=== PATIENT | male | born 1960 | race African-American/Black ===

== ENCOUNTER 2019-06-09 05:27 | Inpatient (IN) ==
[2019-06-09 06:16] LABS: RETIC% 6.83 % (0.8-2.1); RETIC-HE 27.2 PG (28.2-36.6)
[2019-06-09 06:17] LABS: HEMATOCRIT 23.8 % (42.0-52.0); HEMOGLOBIN 8.1 g/dL (14.0-18.0); MCH 23.6 PG (27-31); MCV 69.4 FL (81-99); PLT 209 X1000 (130-400); RBC 3.43 XMIL (4.7-6.1); RDW 23.6 % (11.5-14.5); WBC 25.01 X1000 (4.8-10.8)
[2019-06-09 06:26] LABS: AGAP 15; ALBUMIN 4.7 g/dL (3.5-5.0); ALKALINE PHOSPHATASE 183 U/L (32-122); BUN 16 mg/dL (8-22); CHLORIDE 99 mmol/L (98-107); COSMO 278; CREATININE 1.1 mg/dL (0.7-1.2); ESTIMATED GFR > 60; GLUCOSE 116 mg/dL (70-104); GOT 100 U/L (10-34); GPT 41 U/L (10-44); POTASSIUM 4.6 mmol/L (3.5-5.1); SODIUM 138 mmol/L (136-145); TCO2 24 mmol/L (25-35); TOTAL PROTEIN 8.4 g/dL (6.3-8.3)
[2019-06-09] MEDS ORDERED: DEMEROL IM ONE (06:50)
[2019-06-09] MEDS ORDERED: NS 1,000 ML IV ONE ×3 (06:51→10:38)
[2019-06-09] MEDS ORDERED: ZOFRAN IV ONE (06:51)
[2019-06-09 07:14] LABS: ANISOCYTOSIS 4+; LYMPHS 9 % (21-51); MICROCYTOSIS 4+; MONO 14 % (1-9); NRBC 29 % (0-0); SEGS 77 % (42-75)
[2019-06-09 07:15] LABS: BURR CELLS 2+; SICKLE CELLS 3+
[2019-06-09 09:27] LABS: URINE SOURCE CLEAN CATCH
[2019-06-09 09:31] LABS: BILIRUBIN URINE NEGATIVE (NEGATIVE); BLOOD URINE 1+ (NEGATIVE); CLARITY CLEAR (CLEAR); COLOR YELLOW; GLUCOSE URINE NEGATIVE (NEGATIVE); KETONE URINE NEGATIVE (NEGATIVE); LEUKOCYTES URINE NEGATIVE (NEGATIVE); NITRITE URINE NEGATIVE (NEGATIVE); PROTEIN URINE 1+(30 mg/dL) mg/dL (NEGATIVE); SP GRAVITY URINE 1.015; UROBILINOGEN URINE NORMAL
[2019-06-09] MEDS ORDERED: ZOFRAN IV PRN (10:38)
[2019-06-09] MEDS ORDERED: MORPHINE IV PRN (10:38)
[2019-06-09] MEDS: MORPHINE IV PRN ×3 (12:59→22:26)
[2019-06-09] MEDS: ZOFRAN IV PRN ×2 (12:59→16:46)
[2019-06-09] MEDS: NS 1,000 ML IV SCH ×2 (13:03→20:07)
[2019-06-09] MEDS: PERCOCET-5 PO PRN ×2 (14:18→18:54)
[2019-06-09] MEDS ORDERED: VANCOMYCIN IV PER PHARMACY MISC SCH (17:45)
[2019-06-09] MEDS ORDERED: LEVAQUIN 750 MG/D5W 750 MG/150 ML IVPB IV SCH (18:00)
[2019-06-09] MEDS: LEVAQUIN 750 MG/D5W 750 MG/150 ML IVPB IV SCH (18:08)
[2019-06-09] MEDS ORDERED: PHENERGAN IV PRN (18:22)
[2019-06-09] MEDS ORDERED: SODIUM CHLORIDE 0.9% INJ PRN (18:22)
[2019-06-09] MEDS: VANCOMYCIN 1 GM/NS 1 GM/250 ML IVPB IV SCH ×2 (20:18→22:25)
[2019-06-09] MEDS ORDERED: TYLENOL PO ONE (22:10)
[2019-06-10] MEDS: NS 1,000 ML IV SCH ×4 (01:42→22:05)
[2019-06-10] MEDS: PERCOCET-5 PO PRN ×3 (01:43→22:02)
[2019-06-10 06:30] LABS: BASO% 0.2 % (0.0-0.8); HEMATOCRIT 20.8 % (42.0-52.0); HEMOGLOBIN 6.8 g/dL (14.0-18.0); MCH 22.7 PG (27-31); MCHC 32.7 g/dL (33-37); MCV 69.6 FL (81-99); PLT 144 X1000 (130-400); RBC 2.99 XMIL (4.7-6.1); RDW 22.6 % (11.5-14.5); RETIC% 6.28 % (0.8-2.1); RETIC-HE 26.5 PG (28.2-36.6); WBC 24.55 X1000 (4.8-10.8)
[2019-06-10 06:39] LABS: AGAP 11; ALBUMIN 3.9 g/dL (3.5-5.0); ALKALINE PHOSPHATASE 190 U/L (32-122); BUN 17 mg/dL (8-22); CALCIUM 8.9 mg/dL (8.8-10.2); CHLORIDE 103 mmol/L (98-107); COSMO 278; CREATININE 0.9 mg/dL (0.7-1.2); ESTIMATED GFR > 60; GLUCOSE 120 mg/dL (70-104); GOT 88 U/L (10-34); GPT 43 U/L (10-44); POTASSIUM 4.3 mmol/L (3.5-5.1); SODIUM 138 mmol/L (136-145); TCO2 23 mmol/L (25-35); TOTAL PROTEIN 7.3 g/dL (6.3-8.3)
[2019-06-10 06:40] LABS: LYMPH% 37.4 % (20.5-51.1); MPV 9.2 FL (7.4-10.4); NEUT% 53.9 % (42.2-75.2)
[2019-06-10 06:41] LABS: IMM GRAN% 0.9 % (0.0-0.5); MONO% 7.6 % (1.7-9.3)
[2019-06-10 06:42] LABS: IMM GRAN# 0.23 X1000 (0.0-0.04); LYMPH# 9.74 X1000 (1.2-3.4); MONO# 1.98 X1000 (0.11-0.59); NEUT# 14.03 X1000 (1.4-6.5)
[2019-06-10] MEDS: MORPHINE IV PRN ×2 (10:04→16:59)
[2019-06-10] MEDS ORDERED: LACTULOSE PO ONE (14:00)
[2019-06-10] MEDS ORDERED: TYLENOL PO ONE (15:40)
[2019-06-10] MEDS ORDERED: BENADRYL PO ONE (15:40)
[2019-06-10] MEDS: LEVAQUIN 750 MG/D5W 750 MG/150 ML IVPB IV SCH (18:32)
[2019-06-10] MEDS ORDERED: VANCOMYCIN 1,750 MG in NS 250 ML IV SCH (20:00)
[2019-06-11] MEDS: NS 1,000 ML IV SCH (04:18)
[2019-06-11] MEDS: PERCOCET-5 PO PRN (05:52)
[2019-06-11 08:09] LABS: AGAP 11; ALBUMIN 3.5 g/dL (3.5-5.0); ALKALINE PHOSPHATASE 296 U/L (32-122); BUN 13 mg/dL (8-22); CALCIUM 8.8 mg/dL (8.8-10.2); CHLORIDE 106 mmol/L (98-107); COSMO 281; CREATININE 0.8 mg/dL (0.7-1.2); ESTIMATED GFR > 60; GLUCOSE 118 mg/dL (70-104); GOT 101 U/L (10-34); GPT 66 U/L (10-44); SODIUM 140 mmol/L (136-145); TCO2 23 mmol/L (25-35); TOTAL PROTEIN 7.2 g/dL (6.3-8.3)
[2019-06-11 08:21] LABS: BASO# 0.06 X1000 (0.0-0.2); BASO% 0.3 % (0.0-0.8); HEMATOCRIT 21.5 % (42.0-52.0); HEMOGLOBIN 7.3 g/dL (14.0-18.0); IMM GRAN# 0.23 X1000 (0.0-0.04); IMM GRAN% 1.1 % (0.0-0.5); LYMPH# 7.65 X1000 (1.2-3.4); LYMPH% 35.6 % (20.5-51.1); MCH 24.2 PG (27-31); MCV 71.2 FL (81-99); MONO# 1.55 X1000 (0.11-0.59); MONO% 7.2 % (1.7-9.3); MPV 9.5 FL (7.4-10.4); NEUT# 11.97 X1000 (1.4-6.5); NEUT% 55.8 % (42.2-75.2); PLT 111 X1000 (130-400); RBC 3.02 XMIL (4.7-6.1); RDW 22.4 % (11.5-14.5); WBC 21.46 X1000 (4.8-10.8)
[2019-06-11 08:50] LABS: BANDS 1 % (0-1); EOS 1 % (1-10); LYMPHS 17 % (21-51); MONO 2 % (1-9); NRBC 50 % (0-0); SEGS 77 % (42-75)
[2019-06-11 08:51] LABS: ANISOCYTOSIS 2+; MICROCYTOSIS 3+
[2019-06-11] MEDS ORDERED: FOLIC ACID PO SCH (09:00)
[2019-06-11 10:22] LABS: BE 2.5 mmoll (-3.0-3.0); BLOOD TYPE ARTERIAL; HCO3-(ACT) 26.8 mmoll (20.0-26.0); METHB 1.7 % (0.0-1.5); O2(CT) 10.9 mL/dL (15.0-23.0); O2HB 91.4 % (95.0-99.0); PCO2(98.6) 42 mmHg (35-45); PO2(98.6) 77 mmHg (60-100); SAMPLE BLOOD; SAO2 97.4 % (95.0-100.0); THB 8.4 g/dL (11.5-17.4); pH(98.6) 7.42 (7.35-7.45)
[2019-06-11 10:24] LABS: ALLEN TEST NO; MODALITY CANNULA
[2019-06-11 10:35] LABS: BILIRUBIN URINE NEGATIVE (NEGATIVE); BLOOD URINE 3+ (NEGATIVE); CLARITY CLEAR (CLEAR); COLOR YELLOW; GLUCOSE URINE NEGATIVE (NEGATIVE); KETONE URINE NEGATIVE (NEGATIVE); LEUKOCYTES URINE NEGATIVE (NEGATIVE); NITRITE URINE NEGATIVE (NEGATIVE); PROTEIN URINE 2+(100 mg/dL) mg/dL (NEGATIVE); SP GRAVITY URINE 1.015; UROBILINOGEN URINE 1 mg/dL
[2019-06-11 10:40] LABS: URINE RBC <10 /HPF (<10); URINE SOURCE CATH; URINE WBC <10 /HPF (<10)
[2019-06-11] MEDS ORDERED: NARCAN IV ONE (10:58)
[2019-06-11] MEDS ORDERED: TYLENOL PO PRN (11:04)
[2019-06-11] MEDS ORDERED: MOTRIN PO PRN ×4 (11:06→18:06)
[2019-06-11] MEDS ORDERED: ZOSYN 4.5 GM in NS 100 ML IV SCH (12:00)
[2019-06-11] MEDS ORDERED: XOPENEX NEB INH SCH ×2 (15:30→19:30)
[2019-06-11] MEDS ORDERED: ATROVENT NEB INH SCH ×2 (15:30→19:30)
[2019-06-11 17:19] LABS: ALLEN TEST NO; BE 2.9 mmoll (-3.0-3.0); BLOOD TYPE ARTERIAL; HCO3-(ACT) 27.1 mmoll (20.0-26.0); METHB 1.9 % (0.0-1.5); O2(CT) 10.7 mL/dL (15.0-23.0); O2HB 92.4 % (95.0-99.0); PCO2(98.6) 44 mmHg (35-45); PO2(98.6) 91 mmHg (60-100); SAMPLE BLOOD; SAO2 97.9 % (95.0-100.0); THB 8.1 g/dL (11.5-17.4); pH(98.6) 7.41 (7.35-7.45)
[2019-06-11 17:21] LABS: MODALITY VENTIMASK
[2019-06-11] MEDS ORDERED: PHENERGAN IV PRN (18:06)
[2019-06-11] MEDS ORDERED: SODIUM CHLORIDE 0.9% INJ PRN (18:07)
[2019-06-11] MEDS: ZOSYN 4.5 GM in NS 100 ML IV SCH (18:15)
[2019-06-11] MEDS ORDERED: VANCOMYCIN IV PER PHARMACY MISC SCH (18:15)
[2019-06-11] MEDS ORDERED: ZOFRAN IV PRN (18:54)
[2019-06-11] MEDS ORDERED: NS NEB INH SCH (19:30)
[2019-06-11] MEDS: VANCOMYCIN 1,750 MG in NS 250 ML IV SCH (19:42)
[2019-06-11] MEDS: XOPENEX NEB INH SCH ×2 (19:50→23:35)
[2019-06-11] MEDS: ATROVENT NEB INH SCH ×2 (19:50→23:35)
[2019-06-11] MEDS ORDERED: ZITHROMAX 500 MG/NS 500 MG/250 ML IVPB IV SCH (20:00)
[2019-06-11] MEDS: ZITHROMAX 500 MG/NS 500 MG/250 ML IVPB IV SCH (21:50)
[2019-06-12] MEDS: ZOSYN 4.5 GM in NS 100 ML IV SCH ×4 (01:02→19:45)
[2019-06-12] MEDS: XOPENEX NEB INH SCH ×6 (03:37→23:40)
[2019-06-12] MEDS: ATROVENT NEB INH SCH ×6 (03:37→23:40)
[2019-06-12 08:47] LABS: AGAP 10; BUN 15 mg/dL (8-22); CALCIUM 9.1 mg/dL (8.8-10.2); CHLORIDE 110 mmol/L (98-107); COSMO 294; CREATININE 0.9 mg/dL (0.7-1.2); ESTIMATED GFR > 60; GLUCOSE 119 mg/dL (70-104); POTASSIUM 3.7 mmol/L (3.5-5.1); SODIUM 147 mmol/L (136-145); TCO2 27 mmol/L (25-35)
[2019-06-12] MEDS: FOLIC ACID PO SCH (08:50)
[2019-06-12 09:01] LABS: BASO# 0.04 X1000 (0.0-0.2); BASO% 0.2 % (0.0-0.8); HEMOGLOBIN 6.9 g/dL (14.0-18.0); IMM GRAN% 0.9 % (0.0-0.5); LYMPH% 42.3 % (20.5-51.1); MCHC 32.9 g/dL (33-37); MCV 72.9 FL (81-99); MONO# 1.32 X1000 (0.11-0.59); MONO% 6.2 % (1.7-9.3); NEUT% 50.4 % (42.2-75.2); PLT 96 X1000 (130-400); RBC 2.88 XMIL (4.7-6.1); RDW 22.5 % (11.5-14.5); WBC 21.26 X1000 (4.8-10.8)
[2019-06-12 09:37] LABS: EOS 2 % (1-10); LYMPHS 8 % (21-51); MONO 2 % (1-9); NRBC 42 % (0-0); SEGS 86 % (42-75)
[2019-06-12 09:38] LABS: ANISOCYTOSIS 2+; POLYCHROM OCCASIONAL
[2019-06-12 09:39] LABS: HOWELL-JOLLY BODIES 1+; SICKLE CELLS 1+; TARGET CELLS 2+
[2019-06-12] MEDS ORDERED: XOPENEX NEB ONE (11:01)
[2019-06-12] MEDS ORDERED: ATROVENT NEB ONE (11:01)
[2019-06-12] MEDS ORDERED: NS 500 ML IV ONE ×2 (12:33→15:00)
[2019-06-12] MEDS ORDERED: BENADRYL IV ONE ×2 (12:33→14:45)
[2019-06-12 13:01] LABS: RETIC% 3.38 % (0.8-2.1); RETIC-HE 22.6 PG (28.2-36.6)
[2019-06-12 13:46] LABS: INR 1.21; PROTIME 15.5 Seconds (11.0-16.0)
[2019-06-12 13:47] LABS: PTT 32.1 Seconds (22.3-41.8)
[2019-06-12] MEDS: VANCOMYCIN 1,750 MG in NS 250 ML IV SCH (20:15)
[2019-06-12 20:20] LABS: ALLEN TEST YES; BE 6.1 mmoll (-3.0-3.0); BLOOD TYPE ARTERIAL; HCO3-(ACT) 29.6 mmoll (20.0-26.0); METHB 1.6 % (0.0-1.5); O2HB 93.6 % (95.0-99.0); PCO2(98.6) 47 mmHg (35-45); PO2(98.6) 87 mmHg (60-100); SAMPLE BLOOD; SAO2 98.4 % (95.0-100.0); THB 9.8 g/dL (11.5-17.4); pH(98.6) 7.43 (7.35-7.45)
[2019-06-12 20:21] LABS: MODALITY VENTIMASK
[2019-06-12] MEDS ORDERED: D5W 1,000 ML IV SCH (20:30)
[2019-06-12] MEDS: ZITHROMAX 500 MG/NS 500 MG/250 ML IVPB IV SCH (23:15)
[2019-06-12] MEDS: MORPHINE IV PRN (23:34)
[2019-06-13] MEDS: ZOSYN 4.5 GM in NS 100 ML IV SCH ×2 (01:45→06:20)
[2019-06-13] MEDS: ATROVENT NEB INH SCH ×6 (03:03→23:09)
[2019-06-13] MEDS: XOPENEX NEB INH SCH ×6 (03:04→23:09)
[2019-06-13 05:11] LABS: HEMATOCRIT 28.9 % (42.0-52.0); HEMOGLOBIN 9.4 g/dL (14.0-18.0); MCH 25.1 PG (27-31); MCHC 32.5 g/dL (33-37); MCV 77.1 FL (81-99); PLT 123 X1000 (130-400); RBC 3.75 XMIL (4.7-6.1); RDW 23.4 % (11.5-14.5); WBC 22.47 X1000 (4.8-10.8)
[2019-06-13 07:23] LABS: AGAP 12; ALB/GLOB RATIO 0.7; ALBUMIN 3.1 g/dL (3.5-5.0); ALKALINE PHOSPHATASE 285 U/L (32-122); BUN 11 mg/dL (8-22); CALCIUM 9.2 mg/dL (8.8-10.2); CHLORIDE 114 mmol/L (98-107); COSMO 304; ESTIMATED GFR > 60; GLUCOSE 121 mg/dL (70-104); GOT 86 U/L (10-34); GPT 68 U/L (10-44); POTASSIUM 3.7 mmol/L (3.5-5.1); SODIUM 153 mmol/L (136-145); TCO2 27 mmol/L (25-35); TOTAL BILIRUBIN 1.62 mg/dL (0.20-1.00); TOTAL PROTEIN 7.5 g/dL (6.3-8.3)
[2019-06-13] MEDS: FOLIC ACID PO SCH (09:55)
[2019-06-13] MEDS ORDERED: LASIX IV ONE ×2 (10:14→22:00)
[2019-06-13] MEDS: D5W 1,000 ML IV SCH (11:03)
[2019-06-13] MEDS: MAXIPIME 2 GM in NS 100 ML IV SCH ×2 (11:58→22:26)
[2019-06-13] MEDS ORDERED: LABETALOL IV PRN (12:36)
[2019-06-13] MEDS ORDERED: BLISTEX MEDICATED BERRY LIP BALM TOP PRN (13:49)
[2019-06-13] MEDS: PERCOCET-5 PO PRN (20:07)
[2019-06-13] MEDS ORDERED: VANCOMYCIN 2 GM in NS 500 ML IV ONE (21:00)
[2019-06-13] MEDS: ZITHROMAX 500 MG/NS 500 MG/250 ML IVPB IV SCH (22:26)
[2019-06-14] MEDS: D5W 1,000 ML IV SCH ×4 (01:43→14:21)
[2019-06-14] MEDS: ATROVENT NEB INH SCH ×6 (03:42→23:30)
[2019-06-14] MEDS: XOPENEX NEB INH SCH ×6 (03:42→23:30)
[2019-06-14] MEDS: PERCOCET-5 PO PRN ×3 (05:42→16:37)
[2019-06-14 06:04] LABS: HEMATOCRIT 29.6 % (42.0-52.0); HEMOGLOBIN 9.7 g/dL (14.0-18.0); MCH 25.4 PG (27-31); MCHC 32.8 g/dL (33-37); MCV 77.5 FL (81-99); PLT 129 X1000 (130-400); RBC 3.82 XMIL (4.7-6.1); RDW 24.6 % (11.5-14.5); WBC 29.99 X1000 (4.8-10.8)
[2019-06-14 06:24] LABS: AGAP 10; BUN 10 mg/dL (8-22); CALCIUM 8.8 mg/dL (8.8-10.2); CHLORIDE 103 mmol/L (98-107); COSMO 285; ESTIMATED GFR > 60; GLUCOSE 113 mg/dL (70-104); POTASSIUM 3.1 mmol/L (3.5-5.1); SODIUM 143 mmol/L (136-145); TCO2 30 mmol/L (25-35)
[2019-06-14] MEDS: VANCOMYCIN 1,200 MG in NS 250 ML IV SCH ×2 (08:52→21:28)
[2019-06-14] MEDS: FOLIC ACID PO SCH (08:52)
[2019-06-14] MEDS ORDERED: LASIX IV ONE (09:15)
[2019-06-14] MEDS: MAXIPIME 2 GM in NS 100 ML IV SCH ×2 (12:00→23:07)
[2019-06-14] MEDS: MORPHINE IV PRN (21:39)
[2019-06-14] MEDS: ZITHROMAX 500 MG/NS 500 MG/250 ML IVPB IV SCH (23:07)
[2019-06-15] MEDS: PERCOCET-5 PO PRN ×4 (00:25→22:18)
[2019-06-15] MEDS: XOPENEX NEB INH SCH ×6 (03:19→23:09)
[2019-06-15] MEDS: ATROVENT NEB INH SCH ×6 (03:19→23:09)
[2019-06-15] MEDS: D5W 1,000 ML IV SCH ×2 (03:26→11:30)
[2019-06-15 06:49] LABS: BASO# 0.06 X1000 (0.0-0.2); BASO% 0.2 % (0.0-0.8); HEMATOCRIT 29.8 % (42.0-52.0); HEMOGLOBIN 9.7 g/dL (14.0-18.0); MCH 25.3 PG (27-31); MCHC 32.6 g/dL (33-37); MCV 77.6 FL (81-99); PLT 177 X1000 (130-400); RBC 3.84 XMIL (4.7-6.1); RDW 25.2 % (11.5-14.5); WBC 31.44 X1000 (4.8-10.8)
[2019-06-15 07:15] LABS: AGAP 13; BUN 14 mg/dL (8-22); CALCIUM 8.9 mg/dL (8.8-10.2); CHLORIDE 100 mmol/L (98-107); COSMO 282; CREATININE 1.1 mg/dL (0.7-1.2); ESTIMATED GFR > 60; GLUCOSE 97 mg/dL (70-104); POTASSIUM 3.1 mmol/L (3.5-5.1); SODIUM 141 mmol/L (136-145); TCO2 28 mmol/L (25-35)
[2019-06-15] MEDS ORDERED: KLOR-CON PO ONE (08:32)
[2019-06-15 10:14] LABS: ANISOCYTOSIS 2+; BANDS 2 % (0-1); BASO 1 % (0-1); LYMPHS 14 % (21-51); MONO 6 % (1-9); NRBC 146 % (0-0); POLYCHROM 1+; SEGS 76 % (42-75)
[2019-06-15 10:15] LABS: HYPOCHROM 1+; POIKILOCYTOSIS 1+; TARGET CELLS 1+
[2019-06-15] MEDS: FOLIC ACID PO SCH (10:16)
[2019-06-15] MEDS: MAXIPIME 2 GM in NS 100 ML IV SCH ×3 (10:40→23:18)
[2019-06-15] MEDS: VANCOMYCIN 1,200 MG in NS 250 ML IV SCH ×2 (12:06→20:28)
[2019-06-15] MEDS: MORPHINE IV PRN ×2 (13:26→20:31)
[2019-06-15] MEDS: ZITHROMAX 500 MG/NS 500 MG/250 ML IVPB IV SCH (22:19)
[2019-06-16] MEDS: D5W 1,000 ML IV SCH ×2 (01:12→15:05)
[2019-06-16] MEDS: MORPHINE IV PRN (03:18)
[2019-06-16] MEDS: ATROVENT NEB INH SCH ×6 (03:24→23:19)
[2019-06-16] MEDS: XOPENEX NEB INH SCH ×6 (03:24→23:19)
[2019-06-16 07:45] LABS: BASO# 0.03 X1000 (0.0-0.2); BASO% 0.2 % (0.0-0.8); HEMOGLOBIN 9.7 g/dL (14.0-18.0); MCH 25.2 PG (27-31); MCHC 32.3 g/dL (33-37); MCV 77.9 FL (81-99); MPV 10.4 FL (7.4-10.4); PLT 228 X1000 (130-400); RBC 3.85 XMIL (4.7-6.1); RDW 26.2 % (11.5-14.5); WBC 18.72 X1000 (4.8-10.8)
[2019-06-16 08:01] LABS: AGAP 11; BUN 15 mg/dL (8-22); CALCIUM 9.9 mg/dL (8.8-10.2); CHLORIDE 103 mmol/L (98-107); COSMO 286; CREATININE 1.1 mg/dL (0.7-1.2); ESTIMATED GFR > 60; GLUCOSE 107 mg/dL (70-104); POTASSIUM 3.3 mmol/L (3.5-5.1); SODIUM 143 mmol/L (136-145); TCO2 29 mmol/L (25-35)
[2019-06-16 09:02] LABS: BANDS 1 % (0-1); LYMPHS 12 % (21-51); MONO 5 % (1-9); NRBC 9 % (0-0); SEGS 82 % (42-75)
[2019-06-16 09:03] LABS: HYPOCHROM 2+
[2019-06-16] MEDS: PERCOCET-5 PO PRN ×4 (09:14→22:37)
[2019-06-16] MEDS: FOLIC ACID PO SCH (09:14)
[2019-06-16] MEDS: VANCOMYCIN 1,200 MG in NS 250 ML IV SCH (10:14)
[2019-06-16] MEDS ORDERED: KLOR-CON PO ONE (10:30)
[2019-06-16] MEDS: MAXIPIME 2 GM in NS 100 ML IV SCH ×2 (11:24→22:31)
[2019-06-16] MEDS: ZITHROMAX 500 MG/NS 500 MG/250 ML IVPB IV SCH (21:32)
[2019-06-17] MEDS: VANCOMYCIN 1,350 MG in NS 250 ML IV SCH ×2 (01:32→14:01)
[2019-06-17] MEDS: MORPHINE IV PRN (02:21)
[2019-06-17] MEDS: XOPENEX NEB INH SCH ×4 (03:15→15:18)
[2019-06-17] MEDS: ATROVENT NEB INH SCH ×4 (03:16→15:18)
[2019-06-17] MEDS: FOLIC ACID PO SCH (09:38)
[2019-06-17] MEDS: PERCOCET-5 PO PRN ×2 (09:38→14:08)
[2019-06-17] MEDS ORDERED: KLOR-CON PO ONE (12:08)
[2019-06-17] MEDS: MAXIPIME 2 GM in NS 100 ML IV SCH (12:27)
[2019-06-17 15:32] VITALS: BP 134/79
[2019-06-17] MEDS ORDERED: OMNICEF PO SCH (21:00)
== END 2019-06-17 17:36 | disposition home or self-care (01) | DRG 811 ==
LOC: P.ED 05:27 → P.MEDSURG 05:27 → OBSVTOIN 05:28 → SUATTDRO 05:28 → ICU 06-11 14:31 → 3N 06-15 07:48
PROVIDERS: ATTEND Internal Medicine